=== PATIENT | female | born 1965 | race Caucasian/White ===

== ENCOUNTER 2017-05-04 16:05 | Emergency (ER) | payer MEDICAID ==
[2017-05-04 16:12] VITALS: BP 120/68; PULSE 894; RESP 18; TEMP 98
[2017-05-04] MEDS ORDERED: IBUPROFEN 600 MG TAB PO STA (16:22)
--- NOTE | 2017-05-04 16:46 | XR ---
Right wrist HISTORY: Trauma and pain 4 views of the right wrist There is a distal metaphyseal right radial fracture which is thought likely to extend into the radioc arpal joint and radioulnar joint. Bone mineralization is maintained. Only minimal displacement is pre sent. No dislocation. IMPRESSION: Distal intra-articular radial fracture
--- NOTE | 2017-05-04 16:50 | ED ---
Upper Extremity HPI - General Chief Complaint: Extremity Injury, Upper Stated Complaint: Right Wrist Injury Time Seen by Provider: 05/04/17 16:15 Source: patient, RN notes reviewed Mode of arrival: ambulatory Limitations: no limitations - History of Present Illness Initial Comments: Patient is a pleasant 51-year-old female presenting to the emergency department with chief complaint of right wrist pain. Patient reports that she was attempting to do a front flip on a trampoline when she fell on the outstretched right wrist. Patient reports immediate pain and swelling with the fall. Patient reports throbbing aching discomfort in the right wrist which is "moderate" and constant but worse with range of motion of the wrist. Patient claims the dorsal right wrist pain. Admits to decreased range of motion secondary to discomfort. Denies injury to the hand, elbow, or shoulder. Denies head injury with the fall. Reports she is otherwise been well. Past medical history significant only for thyroid disease. Patient denies chest pain , shortness of breath, cough, rhinorrhea, sore throat. Denies nausea, vomiting , diarrhea. Place: outdoors - Related Data Home Medications Medication Instructions Recorded Confirmed Levothyroxine Sodium [Synthroid] 125 mcg PO DAILY 05/04/17 05/04/17 Previous Rx's Medication Instructions Recorded Hydrocodone/Acetaminophen [[place] 1 each PO Q4HR PRN #20 tab 05/04/17 5-325] Allergies Allergy/AdvReac Type Severity Reaction Status Date / Time Sulfa (Sulfonamide Allergy Rash/Hives Verified 05/04/17 16:31 Antibiotics) Review of Systems ROS Statement: Those systems with pertinent positive or pertinent negative responses have been documented in the HPI. ROS Other: All systems not noted in ROS Statement are negative. Past Medical History Past Medical History: Thyroid Disorder History of Any Multi-Drug Resistant Organisms: None Reported Past Surgical History: Section Past Psychological History: No Psychological Hx Reported Smoking Status: Never smoker Past Alcohol Use History: Occasional Past Drug Use History: None Reported General Exam Limitations: no limitations General appearance: alert, in distress (Appears in mild distress secondary to right wrist discomfort.) Head exam: Present: atraumatic, normocephalic Eye exam: Present: normal appearance ENT exam: Present: normal exam, mucous membranes moist Neck exam: Present: normal inspection Respiratory exam: Present: normal lung sounds bilaterally. Absent: respiratory distress, wheezes, rales Cardiovascular Exam: Present: regular rate, normal rhythm, normal heart sounds. Absent: systolic murmur, diastolic murmur Right Shoulder Exam: Present: normal inspection Upper Arm exam: Present: normal inspection, full ROM. Absent: tenderness, swelling Elbow exam: Present: normal inspection, full ROM. Absent: tenderness, swelling Forearm Wrist exam: Present: tenderness (Moderate tenderness to palpation of the distal right wrist particularly over the distal radius.), swelling (Mild swelling of the distal right wrist. ), ecchymosis (Bruising noted over the distal dorsal wrist). Absent: normal inspection, full ROM (Range of motion significantly reduced to flexion and extension secondary to discomfort in the wrist), abrasion, laceration, tenderness over anatomical snuff box Hand Wrist exam: Present: normal inspection, swelling (he). Absent: full ROM ( Range of motion of the hand reduced secondary to discomfort in the wrist) Vascular: Present: radial pulse. Absent: vascular compromise, Pallo Course Vital Signs 05/04/17 16:09 Temperature 98.0 F Pulse Rate 894 H Respiratory 18 Rate Blood Pressure 120/68 O2 Sat by Pulse 99 Oximetry Procedures - Orthopedic Splinting/Casting Injury #1 Side: right Upper Extremity Injury Location: wrist Upper Extremity Immobilizer: volar splint Medical Decision Making - Medical Decision Making Patient presents today after falling trying to do a full front flip on a trampoline. Complains of right wrist pain. Patient fell on outstretched right wrist. X-ray reveals right radial fracture. Patient was placed in a splint and had been given ibuprofen during her stay. Patient refused [place] while in the ER. Patient will be discharged with pain medication and has been instructed to follow-up with orthopedics as discussed - Radiology Data Radiology results: report reviewed (X-ray right wrist: Distal intra-articular radial fracture. Read by Dr. Steel.) Disposition Clinical Impression: Radius fracture Disposition: HOME SELF-CARE Condition: Stable Instructions: Wrist Fracture in Adults (ED) Additional Instructions: Rest ice and elevate affected area. The splint in place until follow-up with orthopedics. Follow-up with orthopedics early next week. Take pain medication as needed for discomfort as discussed. Follow-up with primary care doctor as needed. Prescriptions: Hydrocodone/Acetaminophen [[place] 5-325] 1 each PO Q4HR PRN #20 tab PRN Reason: Pain Referrals: Warren Bates MD [Primary Care Provider] - 1-2 days Ousmane Salinas PAC [PHYSICIAN ON SITE SERVICES SPECIALIST] - 1-2 days Time of Disposition: 17:19
== END 2017-05-04 17:28 | disposition home or self-care (01) ==
LOC: EC 16:05
DX: S52.571A Other intraarticular fracture of lower end of right radius, initial encounter for closed fracture (principal); E07.9 Disorder of thyroid, unspecified; Z79.899 Other long term (current) drug therapy; Z88.2 Allergy status to sulfonamides; W09.8XXA Fall on or from other playground equipment, initial encounter; Y93.89 Activity, other specified; Y92.89 Other specified places as the place of occurrence of the external cause
CPT/HCPCS: 29125; 99283

== ENCOUNTER → 2017-05-09 | Outpatient (CLI) | payer MEDICAID ==
--- NOTE | 2017-05-09 14:17 | CT ---
EXAMINATION TYPE: CT wrist RT wo con DATE OF EXAM: 05/09/2017 COMPARISON: NONE HISTORY: Rt wrist pain, fall CT DLP: 105.6 mGycm Automated exposure control for dose reduction was used. Axial images were obtained at 2 mm thick sections. Reconstructed images in coronal and sagittal plane s are reviewed on the computer. Three-D reconstructed images were performed of the technologist zhane ruizwejohnathan on the computer. FINDINGS: There is a comminuted fracture of the distal radius. This extends to the ulnar aspect of the radial a rticular surface. Metadiaphysis appears good. Carpal row alignment is normal. No carpal fractures are evident. Proximal metacarpals are intact. No significant angulation is identified. There is some minimal posterior displacement of the distal f racture fragments in relation to the shaft of the radius estimated at 3 mm maximum posterior displace ment. IMPRESSION: COMMINUTED FRACTURE DISTAL METAPHYSEAL RADIUS WITH EXTENSION OF FRACTURE TO THE ARTICULAR SURFACE. ME TADIAPHYSIS IS IMPACTED INTO THE METAPHYSIS.
== END | disposition home or self-care (01) ==
LOC: RADCTMAIN 12:03
PROVIDERS: ATTEND Orthopaedic Surgery
DX: S52.571A Other intraarticular fracture of lower end of right radius, initial encounter for closed fracture (principal)

== ENCOUNTER → 2017-08-27 | Outpatient (CLI) | payer MEDICAID ==
--- NOTE | 2017-08-28 14:02 | MM ---
Reason for exam: screening (asymptomatic). Last mammogram was performed 5 years and 7 months ago. History: Patient had first child at age 36. Physical Findings: A clinical breast exam by your physician is recommended on an annual basis and results should be correlated with mammographic findings. MG Screening Mammo w CAD Bilateral CC and MLO view(s) were taken. Prior study comparison: January 22, 2012, [facility] DIGITAL LEFT BREAST MAMMOGRAM w/CAD. January 22, 2012, left breast ultrasound work-up. January 15, 2012, bilateral digital screening mammo w/CAD. The breast tissue is heterogeneously dense. This may lower the sensitivity of mammography. No suspicious abnormality. No significant changes when compared with prior studies. ASSESSMENT: Negative, BI-RAD 1 RECOMMENDATION: Routine screening mammogram of both breasts in 1 year.
== END | disposition home or self-care (01) ==
LOC: RADMAMWWP 09:25
PROVIDERS: ATTEND Family Medicine
DX: Z12.31 Encounter for screening mammogram for malignant neoplasm of breast (principal)

== ENCOUNTER → 2018-05-01 | Outpatient (CLI) | payer MEDICAID ==
[2018-05-01 08:42] LABS: HCT 42.7 % (34.0-46.0); MCH 29.9 pg (25.0-35.0); MCHC 32.8 g/dL (31.0-37.0); MCV 91.3 fL (80.0-100.0); Mean Platelet Volume 8.1; Platelet Count 190 k/uL (150-450); RBC 4.68 m/uL (3.80-5.40); RDW 12.4 % (11.5-15.5); WBC 4.7 k/uL (3.8-10.6)
[2018-05-01 08:47] LABS: Appearance,Urine Clear (Clear); Bacteria,Urine Rare /hpf; Bilirubin,Urine Negative (Negative); Blood,Urine Negative (Negative); Color,Urine Yellow; Glucose,Urine (UA) Negative (Negative); Ketones,Urine Negative (Negative); Leukocyte Esterase,Urine Large (Negative); Mucus,Urine Rare /hpf; Nitrite,Urine Negative (Negative); PH, Urine 5.5 (5.0-8.0); Protein,Urine Negative (Negative); Squamous Epithelial Cell,Urine 1 /hpf (0-4); Urobilinogen,Urine <2.0 mg/dL (<2.0); WBC,Urine 6 /hpf (0-5)
[2018-05-01 10:07] LABS: Albumin 4.2 g/dL (3.5-5.0); Calcium 9.3 mg/dL (8.4-10.2); Potassium 4.4 mmol/L (3.5-5.1); Total Bilirubin 0.6 mg/dL (0.2-1.3); Total Protein 7.2 g/dL (6.3-8.2)
[2018-05-01 10:25] LABS: T4, Free (Free Thyroxine) 0.98 ng/dL (0.78-2.19)
== END | disposition home or self-care (01) ==
LOC: LABWHC1 08:15
PROVIDERS: ATTEND Family Medicine
DX: Z00.00 Encounter for general adult medical examination without abnormal findings (principal); E03.9 Hypothyroidism, unspecified
CPT/HCPCS: 36415; 80053; 80061; 81001; 84439; 84443; 84481; 85027

== ENCOUNTER 2019-02-12 14:42 | Emergency (ER) | payer MEDICAID ==
[2019-02-12 14:47] VITALS: BP 116/74; PULSE 60; RESP 16; TEMP 97.9
--- NOTE | 2019-02-12 15:34 | ED ---
General Adult HPI - General Chief complaint: Extremity Injury, Lower Stated complaint: Foot Injury Time Seen by Provider: 02/12/19 14:58 Source: patient Mode of arrival: ambulatory Limitations: no limitations - History of Present Illness Initial comments: Patient 53-year-old female presenting to the emergency department with left foot pain. Patient reports pain started yesterday when she stood up too quick and accidentally inverted her ankle and put her donn on it. Patient reports minimal pain throughout the day and at night but woke up with mild to moderate pain. Patient states that the pain is specific to anterior lateral aspect of the left foot. Patient states she doesn't have any pain with rest but it is exacerbated with walking. Patient states this morning she put an orthopedic boot and were to emergency department. Patient states that she feels much better after taking it off. Patient denies taking any pain medication. - Related Data Home Medications Medication Instructions Recorded Confirmed Levothyroxine Sodium [Synthroid] 125 mcg PO DAILY 05/04/17 05/04/17 Previous Rx's Medication Instructions Recorded Hydrocodone/Acetaminophen [[place] 1 each PO Q4HR PRN #20 tab 05/04/17 5-325] Allergies Allergy/AdvReac Type Severity Reaction Status Date / Time Sulfa (Sulfonamide Allergy Rash/Hives Verified 02/12/19 14:47 Antibiotics) Review of Systems ROS Statement: Those systems with pertinent positive or pertinent negative responses have been documented in the HPI. ROS Other: All systems not noted in ROS Statement are negative. Past Medical History Past Medical History: Thyroid Disorder History of Any Multi-Drug Resistant Organisms: None Reported Past Surgical History: Section Past Psychological History: No Psychological Hx Reported Smoking Status: Never smoker Past Alcohol Use History: Occasional Past Drug Use History: None Reported General Exam Limitations: no limitations General appearance: alert, in no apparent distress Head exam: Present: atraumatic, normocephalic, normal inspection Eye exam: Present: normal appearance, PERRL, EOMI. Absent: scleral icterus, conjunctival injection, nystagmus Pupils: Present: normal accommodation ENT exam: Present: normal exam Neck exam: Present: normal inspection, full ROM Respiratory exam: Present: normal lung sounds bilaterally. Absent: wheezes, rales, rhonchi, stridor Cardiovascular Exam: Present: regular rate, normal rhythm, normal heart sounds Extremities exam: Present: normal inspection, normal capillary refill. Absent: tenderness, pedal edema, joint swelling Left Hip exam: Present: normal inspection, full ROM. Absent: tenderness Upper Leg exam: Present: normal inspection, full ROM Knee exam: Present: normal inspection, full ROM Lower Leg exam: Present: normal inspection, full ROM Ankle exam: Present: normal inspection, full ROM Foot/Toe exam: Present: full ROM (Limited with eversion.), tenderness (Very mild tenderness on palpation.). Absent: normal inspection (Very mild Pain when bearing weight.), swelling, abrasion, laceration, ecchymosis, deformity, crepitus, dislocation, erythema Course Vital Signs 02/12/19 14:45 Temperature 97.9 F Pulse Rate 60 Respiratory 16 Rate Blood Pressure 116/74 O2 Sat by Pulse 99 Oximetry Medical Decision Making - Medical Decision Making Patient is a 53-year-old female presented emergency department with left foot pain. After physical examination no imaging is necessary. Patient reports she feels much better after taking her. Patient will be discharged and advised to follow with primary care. Patient advised to take anti-inflammatories and continue wearing the boot as immobilizer. Please return to emergency department if symptoms worsen. Case discussed with physician. Disposition Clinical Impression: Ankle sprain and strain Disposition: HOME SELF-CARE Condition: Stable Instructions (If sedation given, give patient instructions): Ankle Sprain (ED) Additional Instructions: Please continue wearing the orthopedic for several days. Please take ibuprofen for pain as needed. Please follow with primary care. Please return to emergency department if symptoms worsen. Is patient prescribed a controlled substance at d/c from ED?: No Referrals: Warren Bates MD [Primary Care Provider] - 1-2 days Time of Disposition: 15:27
== END 2019-02-12 15:38 | disposition home or self-care (01) ==
LOC: EC 14:42
DX: S93.402A Sprain of unspecified ligament of left ankle, initial encounter (principal); E07.9 Disorder of thyroid, unspecified; Z88.2 Allergy status to sulfonamides; Z79.890 Hormone replacement therapy; X50.1XXA Overexertion from prolonged static or awkward postures, initial encounter; Y93.89 Activity, other specified; Y92.009 Unspecified place in unspecified non-institutional (private) residence as the place of occurrence of the external cause
CPT/HCPCS: 99283

== ENCOUNTER → 2019-08-15 | Outpatient (CLI) | payer MEDICAID ==
[2019-08-15 10:35] LABS: HCT 41.3 % (34.0-46.0); HGB 13.9 gm/dL (11.4-16.0); MCH 30.9 pg (25.0-35.0); MCHC 33.7 g/dL (31.0-37.0); MCV 91.7 fL (80.0-100.0); Mean Platelet Volume 7.1; Platelet Count 203 k/uL (150-450); RBC 4.51 m/uL (3.80-5.40); RDW 11.9 % (11.5-15.5); WBC 4.1 k/uL (3.8-10.6)
[2019-08-15 11:16] LABS: Appearance,Urine Clear (Clear); Bilirubin,Urine Negative (Negative); Blood,Urine Negative (Negative); Color,Urine Light Yellow; Glucose,Urine (UA) Negative (Negative); Ketones,Urine Negative (Negative); Leukocyte Esterase,Urine Trace (Negative); Mucus,Urine Rare /hpf; Nitrite,Urine Negative (Negative); Protein,Urine Negative (Negative); RBC,Urine <1 /hpf (0-5); Specific Gravity,Urine 1.018 (1.001-1.035); Squamous Epithelial Cell,Urine 1 /hpf (0-4); Urobilinogen,Urine <2.0 mg/dL (<2.0); WBC,Urine 1 /hpf (0-5)
[2019-08-15 17:24] LABS: ALT 37 U/L (8-44); AST 28 U/L (13-35); African American GFR (CKD) 82.8 (60.0-200.0); Albumin/Globulin Ratio 1.88 (1.60-3.17); Alkaline Phosphatase 88 U/L (41-126); BUN/Creat Ratio 25.56 Ratio (12.00-20.00); Calcium 9.4 mg/dL (8.7-10.3); Carbon Dioxide 29.2 mmol/L (21.6-31.8); Chloride 104 mmol/L (96-109); Chol/HDL Ratio 2.49; Cholesterol 172 mg/dL (0-200); Globulin 2.4 g/dL (1.6-3.3); Glucose 90 mg/dL (70-110); Potassium 4.3 mmol/L (3.5-5.5); Sodium 140 mmol/L (135-145); Total Bilirubin 0.8 mg/dL (0.2-1.2); Total Protein 6.9 g/dL (6.2-8.2); Triglycerides <50.0 mg/dL (0.0-149.0)
== END | disposition home or self-care (01) ==
LOC: LABWHC1 09:39
PROVIDERS: ATTEND Family Medicine
DX: Z00.00 Encounter for general adult medical examination without abnormal findings (principal); E03.9 Hypothyroidism, unspecified
CPT/HCPCS: 36415; 80053; 80061; 81001; 84439; 84443; 84481; 85027

== ENCOUNTER → 2019-09-25 | Outpatient (CLI) | payer MEDICAID ==
--- NOTE | 2019-09-25 14:14 | MM ---
Reason for exam: screening (asymptomatic). Last mammogram was performed 2 years and 1 month ago. History: Patient is postmenopausal and had first child at age 36. Physical Findings: A clinical breast exam by your physician is recommended on an annual basis and results should be correlated with mammographic findings. MG Screening Mammo w CAD Bilateral CC and MLO view(s) were taken. Prior study comparison: August 27, 2017, bilateral MG screening mammo w CAD. January 22, 2012, [facility] DIGITAL LEFT BREAST MAMMOGRAM w/CAD. There are scattered fibroglandular densities. No significant changes when compared with prior studies. ASSESSMENT: Benign, BI-RAD 2 RECOMMENDATION: Routine screening mammogram of both breasts in 1 year.
== END | disposition home or self-care (01) ==
LOC: RADMAMWWP 08:17
PROVIDERS: ATTEND Family Medicine
DX: Z12.31 Encounter for screening mammogram for malignant neoplasm of breast (principal)
CPT/HCPCS: 77067

== ENCOUNTER → 2020-05-12 | Outpatient (CLI) | payer MEDICAID ==
--- NOTE | 2020-05-12 18:16 | XR ---
EXAMINATION TYPE: XR abdomen 1V DATE OF EXAM: 05/12/2020 3:26 PM CLINICAL HISTORY: Lower abdominal pain for 4 days TECHNIQUE: Supine images of the abdomen and pelvis were obtained COMPARISON: None. FINDINGS: Scattered gas is seen in non-distended small bowel loops. Gas and fecal material is seen in non-distended colon. There is no visceromegaly, large free air, or abnormal calcification appreciate d. The osseous structures are intact. IMPRESSION: Nonspecific bowel gas pattern.
== END | disposition home or self-care (01) ==
LOC: RADXRMAIN 15:12
PROVIDERS: ATTEND Physician Assistant
DX: R10.9 Unspecified abdominal pain (principal)
CPT/HCPCS: 74018

== ENCOUNTER → 2020-05-17 | Outpatient (CLI) | payer MEDICAID ==
[2020-05-17 09:22] LABS: HCT 39.9 % (34.0-46.0); MCH 30.1 pg (25.0-35.0); MCHC 32.5 g/dL (31.0-37.0); MCV 92.6 fL (80.0-100.0); Mean Platelet Volume 8.6; Platelet Count 185 k/uL (150-450); WBC 4.9 k/uL (3.8-10.6)
[2020-05-17 16:39] LABS: ALT 27 U/L (8-44); AST 33 U/L (13-35); African American GFR (CKD) 82.8 (60.0-200.0); Albumin/Globulin Ratio 1.75 (1.60-3.17); Alkaline Phosphatase 71 U/L (41-126); BUN/Creat Ratio 23.33 Ratio (12.00-20.00); Calcium 9.3 mg/dL (8.7-10.3); Carbon Dioxide 27.8 mmol/L (21.6-31.8); Chloride 103 mmol/L (96-109); Chol/HDL Ratio 2.38; Cholesterol 157 mg/dL (0-200); Globulin 2.4 g/dL (1.6-3.3); Glucose 84 mg/dL (70-110); Non-African American GFR(CKD) 71.5 (60.0-200.0); Sodium 138 mmol/L (135-145); Total Protein 6.6 g/dL (6.2-8.2); Triglycerides <50.0 mg/dL (0.0-149.0)
== END | disposition home or self-care (01) ==
LOC: LABWHC1 08:06
PROVIDERS: ATTEND Family Medicine
DX: Z00.00 Encounter for general adult medical examination without abnormal findings (principal); E03.9 Hypothyroidism, unspecified
CPT/HCPCS: 36415; 80053; 80061; 84439; 84443; 84481; 85027

== ENCOUNTER → 2021-06-03 | Outpatient (CLI) | payer MEDICAID ==
[2021-06-03 12:17] LABS: HCT 39.9 % (37.2-46.3); HGB 13.1 g/dL (12.0-15.0); MCH 30.1 pg (27.0-32.0); MCHC 32.8 g/dL (32.0-37.0); MCV 91.7 fL (80.0-97.0); Mean Platelet Volume 10.9 fL (9.5-12.2); Platelet Count 199 X 10*3/uL (140-440); RBC 4.35 X 10*6/uL (4.10-5.20); RDW 11.7 % (11.5-14.5); WBC 4.24 X 10*3/uL (4.50-10.00)
[2021-06-03 15:36] LABS: African American GFR (CKD) 72.4 (60.0-200.0); Albumin 4.7 g/dL (3.80-4.90); Albumin/Globulin Ratio 2.04 (1.60-3.17); Anion Gap 6.2 mmol/L (4.00-12.00); Calcium 9.6 mg/dL (8.7-10.3); Carbon Dioxide 28.8 mmol/L (21.6-31.8); Globulin 2.3 g/dL (1.6-3.3); Non-African American GFR(CKD) 62.5 (60.0-200.0); Potassium 3.8 mmol/L (3.5-5.5); Total Bilirubin 0.9 mg/dL (0.3-1.2)
[2021-06-03 15:45] LABS: T4, Free (Free Thyroxine) 1.3 ng/dL (0.80-1.80)
== END | disposition home or self-care (01) ==
LOC: LABWHC1 08:04
PROVIDERS: ATTEND Family Medicine
DX: Z00.00 Encounter for general adult medical examination without abnormal findings (principal); E03.9 Hypothyroidism, unspecified
CPT/HCPCS: 36415; 80053; 84439; 84443; 84481; 85027

== ENCOUNTER → 2022-06-08 | Outpatient (CLI) | payer MEDICAID ==
[2022-06-08 15:23] LABS: HDL Cholesterol 72.6 mg/dL (40.00-60.00); T4, Free (Free Thyroxine) 1.57 ng/dL (0.800-1.800); Triglycerides 33.5 mg/dL (0.00-149.00)
[2022-06-08 15:49] LABS: Chol/HDL Ratio 2.26 Ratio; LDL Cholesterol,Direct Reflex 84.1 mg/dL (0.00-129.00)
== END | disposition home or self-care (01) ==
LOC: LABWHC1 07:47
PROVIDERS: ATTEND Family Medicine
DX: Z00.00 Encounter for general adult medical examination without abnormal findings (principal); E03.9 Hypothyroidism, unspecified
CPT/HCPCS: 36415; 80061; 83721; 84439; 84443; 84481

== ENCOUNTER → 2023-06-13 | Outpatient (CLI) | payer MEDICAID ==
[2023-06-13 16:21] LABS: HCT 40.3 % (37.2-46.3); HGB 13.4 d/dL (12.0-15.0); MCH 29.8 pg (27.0-32.0); MCHC 33.3 d/dL (32.0-37.0); MCV 89.8 FL (80.0-97.0); Mean Platelet Volume 10.9 FL (9.5-12.2); NRBC Per 100 WBC 0 X 10*3/uL (0.00-0.01); Platelet Count 191 X 10*3/uL (140-440); RBC 4.49 X 10*6/uL (4.10-5.20); RDW 11.6 % (11.5-14.5); WBC 4.91 X 10*3/uL (4.50-10.00)
[2023-06-13 16:36] LABS: ALT 24 U/L (8-44); AST 25 U/L (13-35); Albumin 4.4 d/dL (3.8-4.9); Albumin/Globulin Ratio 1.91 Ratio (1.60-3.17); Alkaline Phosphatase 69 U/L (41-126); Blood Urea Nitrogen 28.1 mg/dL (9.0-27.0); Calcium 9.5 mg/dL (8.7-10.3); Carbon Dioxide 26.7 mmol/L (21.6-31.8); Chloride 105 mmol/L (96-109); Chol/HDL Ratio 2.42 Ratio; Globulin 2.3 d/dL (1.6-3.3); Glucose 90 mg/dL (70-110); LDL Cholesterol,Calculated 87.8 mg/dL (0.0-131.0); Potassium 5.2 mmol/L (3.5-5.5); Sodium 141 mmol/L (135-145); T4, Free (Free Thyroxine) 1.32 ng/dL (0.80-1.80); Total Bilirubin 0.5 mg/dL (0.3-1.2); Total Protein 6.7 d/dL (6.2-8.2); VLDL Calculation 8.44 mg/dL (5.00-40.00)
== END | disposition home or self-care (01) ==
LOC: LABWHC1 07:23
PROVIDERS: ATTEND Family Medicine
DX: Z00.00 Encounter for general adult medical examination without abnormal findings (principal); E03.9 Hypothyroidism, unspecified
CPT/HCPCS: 36415; 80053; 80061; 84439; 84443; 84481; 85027

== ENCOUNTER → 2023-07-26 | Outpatient (CLI) | payer MEDICAID ==
[2023-07-26 22:41] LABS: T4, Free (Free Thyroxine) 1.48 ng/dL (0.80-1.80)
== END | disposition home or self-care (01) ==
LOC: LABWHC1 13:39
PROVIDERS: ATTEND Family Medicine
DX: E03.9 Hypothyroidism, unspecified (principal)
CPT/HCPCS: 36415; 84439; 84443; 84481

== ENCOUNTER → 2024-06-25 | Outpatient (CLI) | payer MEDICAID ==
[2024-06-25 10:22] LABS: HCT 42.5 % (37.2-46.3); HGB 14.2 g/dL (12.0-15.0); MCH 30.1 pg (27.0-32.0); MCHC 33.4 g/dL (32.0-37.0); Mean Platelet Volume 10.9 FL (9.5-12.2); NRBC Per 100 WBC 0 X 10*3/uL (0.00-0.01); Platelet Count 214 X 10*3/uL (140-440); RBC 4.72 X 10*6/uL (4.10-5.20); RDW 11.7 % (11.5-14.5); WBC 5.11 X 10*3/uL (4.50-10.00)
[2024-06-25 10:37] LABS: ALT 31 U/L (8-44); AST 25 U/L (13-35); Albumin 4.6 g/dL (3.8-4.9); Albumin/Globulin Ratio 1.64 Ratio (1.60-3.17); Alkaline Phosphatase 85 U/L (41-126); Blood Urea Nitrogen 26.8 mg/dL (9.0-27.0); Calcium 9.7 mg/dL (8.7-10.3); Carbon Dioxide 26.3 mmol/L (21.6-31.8); Chloride 104 mmol/L (96-109); Chol/HDL Ratio 2.44 Ratio; Globulin 2.8 g/dL (1.6-3.3); Glucose 89 mg/dL (70-110); LDL Cholesterol,Calculated 94.8 mg/dL (0.0-131.0); Potassium 4.5 mmol/L (3.5-5.5); Sodium 140 mmol/L (135-145); Total Bilirubin 0.6 mg/dL (0.3-1.2); Total Protein 7.4 g/dL (6.2-8.2); VLDL Calculation 7.88 mg/dL (5.00-40.00)
== END | disposition home or self-care (01) ==
LOC: LABWHC1 07:29
PROVIDERS: ATTEND Family Medicine
DX: Z00.00 Encounter for general adult medical examination without abnormal findings (principal)
CPT/HCPCS: 36415; 80053; 80061; 84439; 84443; 84481; 85027